=== PATIENT | female | born 1955 | race Caucasian/White ===

== ENCOUNTER 2019-07-08 10:30 | Emergency (ER) | payer MEDICARE ==
[2019-07-08] MEDS ORDERED: HYDROMORPHONE HCL INJ/PF 2 MG/ML AMPULE IM ONE (11:27)
--- NOTE | 2019-07-08 11:28 | ER Document Report ---
ED General - General Chief Complaint: Shoulder Pain Stated Complaint: BODY PAIN Time Seen by Provider: 07/08/19 11:20 Notes: Patient with chronic hep C and chronic pain presents with bilateral shoulder pain left greater than right. Worse with movement. She is tried multiple medications and is now on only Motrin. She is new to the area has Blue Cross Blue Shield yet has not established care with pain primary or hepatology. Denies radiculopathy symptoms denies fever and chills. She is asking to be admitted for her hep C. She denies jaundice. - Related Data Allergies/Adverse Reactions: acetaminophen Allergy (Verified 07/08/19 10:42) fentanyl Allergy (Verified 07/08/19 10:42) gabapentin Allergy (Verified 07/08/19 10:42) ketorolac [From Toradol] Allergy (Verified 07/08/19 10:42) NSAIDS (Non-Steroidal Anti-Inflamma Allergy (Verified 07/08/19 10:42) Sulfa (Sulfonamide Antibiotics) Allergy (Verified 07/08/19 10:42) Past Medical History - Social History Smoking Status: Current Every Day Smoker Chew tobacco use (# tins/day): No Smoking Education Provided: Yes - The patient ED visit today was directly related to their abuse of tobacco. Frequency of alcohol use: Rare Drug Abuse: Marijuana Family History: None Patient has homicidal ideation: No Review of Systems - Review of Systems Notes: REVIEW OF SYSTEMS GEN: Denies fever, chills, weight loss ENT: Denies sore throat, nasal discharge, ear pain EYES: Denies blurry vision, eye pain, discharge CV: Denies chest pain, palpitations, edema RESP: Denies cough, shortness of breath, wheezing GI: Denies abdominal pain, nausea, vomiting, diarrhea MSK: Neck pain as above SKIN: Denies rash, skin lesions LYMPH: Denies swollen glands/lymph nodes NEURO: Denies headache, focal weakness or numbness, dizziness PSYCH: Denies depression, suicidal or homicidal ideation PHYSICAL EXAMINATION General: No acute distress, well-nourished Head: Atraumatic, normocephalic ENT: Mouth normal, oropharynx moist, no exudates or tonsillar enlargement Eyes: Conjunctiva normal, pupils equal, lids normal Neck: No JVD, supple, no guarding CVS: Normal rate, regular rhythm, no murmurs Resp: No resp distress, equal and normal breath sounds bilaterally GI: Nondistended, soft, no tenderness to palpation, no rebound or guarding Ext: No deformities, no edema, normal range of motion in upper and lower ext Back: No CVA or midline TTP Skin: No rash, warm Lymphatic: No lymphadeopathy noted Neuro: Awake, alert. Face symmetric. GCS 15. Physical Exam - Vital signs Vitals: Temp 98.1 F 07/08/19 10:31 Course - Re-evaluation Re-evalutation: 07/08/19 11:50 Patient presents chronic musculoskeletal pain history of multiple surgeries history of arthritis in most major joints without acute redness acute arthritis on exam or complications of hep C apparent. Do not think she requires work-up today. We discussed in depth non-opioid pain options as an outpatient including cannabis topicals etc. She was referred via her excellent insurance to see any primary care doctor in the community. I have discussed with the patient there likely diagnosis, aftercare plan, follow-up plans and my usual and customary return precautions. They verbalized understanding of this. - Vital Signs Vital signs: Temp Pulse Resp BP Pulse Ox 98.1 F 07/08/19 10:31 Discharge - Discharge Clinical Impression: Chronic musculoskeletal pain Condition: Good Disposition: HOME, SELF-CARE Instructions: Chronic Pain Control ([facility]) Additional Instructions: As we discussed please feel free to consume CBD or cannabis edibles but do not smoke it because of your COPD. Given that you have Blue Cross she can see any provider in the area that you would like so please go online and select one. [place] [facility] can manage her chronic pain from there.
[2019-07-08 13:29] VITALS: BP 118/75
== END 2019-07-08 13:24 | disposition home or self-care (01) ==
LOC: ER 10:30
DX: G89.29 Other chronic pain (principal); M25.512 Pain in left shoulder; M25.511 Pain in right shoulder; F17.200 Nicotine dependence, unspecified, uncomplicated; Z88.6 Allergy status to analgesic agent; Z88.2 Allergy status to sulfonamides
CPT/HCPCS: 99283; 96372; J1170

== ENCOUNTER 2019-08-13 08:56 | Emergency (ER) | payer MEDICARE ==
--- NOTE | 2019-08-13 09:48 | ER Document Report ---
ED General - General Chief Complaint: Nausea/Vomiting/Diarrhea Stated Complaint: SHORTNESS OF BREATH Time Seen by Provider: 08/13/19 09:48 - HPI Patient complains to provider of: headache, N/V diarhea Notes: Three 09/15 throbbing migraine headache. Patient suffers from chronic migraines feels a clinical classic migraines. Denies trauma, fever, neck pain. Denies abrupt onset. This headache has been associated with nausea vomiting and diarrhea. Nothing makes the pain better or worse. Denies all other symptoms - Related Data Allergies/Adverse Reactions: acetaminophen Allergy (Verified 07/08/19 10:42) fentanyl Allergy (Verified 07/08/19 10:42) gabapentin Allergy (Verified 07/08/19 10:42) ketorolac [From Toradol] Allergy (Verified 07/08/19 10:42) NSAIDS (Non-Steroidal Anti-Inflamma Allergy (Verified 07/08/19 10:42) Sulfa (Sulfonamide Antibiotics) Allergy (Verified 07/08/19 10:42) Past Medical History - Social History Smoking Status: Current Every Day Smoker Chew tobacco use (# tins/day): No Frequency of alcohol use: Occasional Drug Abuse: Marijuana Family History: None Neurological Medical History: Reports: Hx Migraine, Hx Seizures Endocrine Medical History: Reports: Hx Diabetes Mellitus Type 2 Past Surgical History: Reports: Hx Cardiac Catheterization - x1 stent Review of Systems - Review of Systems Notes: REVIEW OF SYSTEMS: CONSTITUTIONAL: -fevers, -chills EENT: -eye pain, -difficulty swallowing, -nasal congestion CARDIOVASCULAR: -chest pain, -syncope. RESPIRATORY: -cough, -SOB GASTROINTESTINAL: Positive for nausea vomiting diarrhea GENITOURINARY: -dysuria, -hematuria MUSCULOSKELETAL: -back pain, -neck pain SKIN: -rash or skin lesions. HEMATOLOGIC: -easy bruising or bleeding. LYMPHATIC: -swollen, enlarged glands. NEUROLOGICAL: Positive for headache PSYCHIATRIC: -anxiety, -depression. ALL OTHER SYSTEMS REVIEWED AND NEGATIVE. Physical Exam - Vital signs Vitals: Temp 98.6 F 08/13/19 08:57 - Notes Notes: PHYSICAL EXAMINATION: GENERAL: Well-appearing, well-nourished and in no acute distress. HEAD: Atraumatic, normocephalic. EYES: Pupils equal round and reactive to light, extraocular movements intact, sclera anicteric, conjunctiva are normal. ENT: nares patent, oropharynx clear without exudates. Moist mucous membranes. NECK: Normal range of motion, supple without lymphadenopathy LUNGS: Breath sounds clear to auscultation bilaterally and equal. No wheezes rales or rhonchi. HEART: Regular rate and rhythm without murmurs ABDOMEN: Soft, nontender, normoactive bowel sounds. No guarding, no rebound. No masses appreciated. EXTREMITIES: Normal range of motion, no pitting or edema. No cyanosis. NEUROLOGICAL: Cranial nerves grossly intact. Normal speech, normal gait. Normal sensory and motor exams. PSYCH: Normal mood, normal affect. SKIN: Warm, Dry, normal turgor, no rashes or lesions noted. Course - Re-evaluation Re-evalutation: 08/13/19 09:57 Appearing female no acute distress presents with migraine with nausea and vomiting. Will check labs will initiate therapy. 08/13/19 10:58 Sense of lab work-up unremarkable. Patient feeling markedly improved. Will be discharged home follow-up PCP return if anything changes - Vital Signs Vital signs: Temp Pulse Resp BP Pulse Ox 98.6 F 95 08/13/19 08:57 08/13/19 09:41 - Laboratory Result Diagrams: 08/13/19 09:28 08/13/19 09:28 Laboratory results interpreted by nj: 08/13/19 08/13/19 08/13/19 09:28 09:28 09:28 Hgb 16.3 H Sodium 136.2 L Potassium 3.5 L Glucose 139 H AST 70 H ALT 56 H Urine Glucose (UA) 150 H Urine Blood SMALL H Ur Leukocyte Esterase SMALL H - EKG Interpretation by Mt EKG shows normal: Sinus rhythm Rate: Normal Additional EKG results interpreted by nj: 08/13/19 10:02 Normal sinus rhythm, no ST elevation or depression, normal PA interval, normal QRS Discharge - Discharge Clinical Impression: Headache Qualifiers: Headache type: unspecified Headache chronicity pattern: acute headache Intractability: not intractable Qualified Code(s): R51 - Headache Disposition: HOME, SELF-CARE Instructions: Acetaminophen
[2019-08-13 09:49] LABS: ABSOLUTE EOSINOPHILS # (AUTO) 0.1 10^3/uL (0.0-0.6); ABSOLUTE LYMPHOCYTES (AUTO) 1.6 10^3/uL (0.5-4.7); ABSOLUTE MONOCYTES (AUTO) 0.7 10^3/uL (0.1-1.4); ABSOLUTE NEUT (AUTO) 5.7 10^3/uL (1.7-8.2); BASOPHILS % (AUTO) 0.4 % (0-2); EOSINOPHILS % (AUTO) 1.8 % (0-6); HEMATOCRIT 46.2 % (36.0-47.0); HEMOGLOBIN 16.3 g/dL (12.0-15.5); MEAN CORPUSCULAR HEMOGLOBIN 31.9 pg (27.0-33.4); MEAN CORPUSCULAR HGB CONC 35.4 g/dL (32.0-36.0); MEAN CORPUSCULAR VOLUME 90 fl (80-97); PLATELET COUNT 237 10^3/uL (150-450); RED BLOOD COUNT 5.12 10^6/uL (3.72-5.28); RED CELL DISTRIBUTION WIDTH 12.3 % (11.5-14.0); SEGMENTED NEUTROPHILS % (AUTO) 68.8 % (42-78); TOTAL CELLS COUNTED % (AUTO) 100 %; WHITE BLOOD COUNT 8.2 10^3/uL (4.0-10.5)
[2019-08-13] MEDS ORDERED: DIPHENHYDRAMINE HCL 50 MG/ML VIAL IV ONE (09:54)
[2019-08-13] MEDS ORDERED: METOCLOPRAMIDE HCL INJ/PF 10 MG/2 ML SDV IV ONE (09:54)
[2019-08-13] MEDS ORDERED: NORMAL SALINE 1000 ML 1,000 ML IV ONE (09:54)
[2019-08-13] MEDS ORDERED: KETOROLAC TROMETHAMINE INJ/PF 30 MG/1 ML SDV IV ONE (09:55)
[2019-08-13 10:07] LABS: ALKALINE PHOSPHATASE 105 U/L (38-126); ANION GAP 8 (5-19); ASPARTATE AMINO TRANSFERASE 70 U/L (14-36); BILIRUBIN,TOTAL 0.7 mg/dL (0.2-1.3); BLOOD UREA NITROGEN 14 mg/dL (7-20); CALCIUM 9.2 mg/dL (8.4-10.2); CARBON DIOXIDE 25 mmol/L (22-30); CHLORIDE 103 mmol/L (98-107); CREATINE KINASE 45 U/L (30-135); GLUCOSE 139 mg/dL (75-110); POTASSIUM 3.5 mmol/L (3.6-5.0)
[2019-08-13 10:10] LABS: APPEARANCE,URINE SLIGHTLY-CLOUDY; BILIRUBIN,URINE NEGATIVE (NEGATIVE); COLOR,URINE YELLOW; GLUCOSE, URINE 150 mg/dL (NEGATIVE); KETONES,URINE NEGATIVE (NEGATIVE); LEUKOCYTE ESTERASE,URINE SMALL (NEGATIVE); NITRITE,URINE NEGATIVE (NEGATIVE); PROTEIN,URINE NEGATIVE (NEGATIVE); UROBILINOGEN,URINE NEGATIVE mg/dL (<2.0)
--- NOTE | 2019-08-13 10:20 | RADIOLOGY REPORT (SQ) ---
EXAM DESCRIPTION: CHEST SINGLE VIEW IMAGES COMPLETED DATE/TIME: 08/13/2019 9:35 am REASON FOR STUDY: bed 6 difficulty breathing COMPARISON: None. EXAM PARAMETERS: NUMBER OF VIEWS: One view. TECHNIQUE: Single frontal radiographic view of the chest acquired. RADIATION DOSE: NA LIMITATIONS: None. FINDINGS: LUNGS AND PLEURA: No opacities, masses or pneumothorax. No pleural effusion. MEDIASTINUM AND HILAR STRUCTURES: No masses. Contour normal. HEART AND VASCULAR STRUCTURES: Heart normal in size. Normal vasculature. BONES: No acute findings. HARDWARE: Lower cervical fusion hardware. Resection distal 3rd right clavicle OTHER: No other significant finding. IMPRESSION: NO ACUTE RADIOGRAPHIC FINDING IN THE CHEST. TECHNICAL DOCUMENTATION: JOB ID: [id number] 2010 [employer]- All Rights Reserved Reading location - IP/workstation name: [email or web address]
[2019-08-13 10:32] LABS: CREATINE KINASE MB < 0.22 ng/mL (<4.55); TROPONIN I < 0.012 ng/mL
[2019-08-13] MEDS ORDERED: ALBUMIN HUMAN 12.5 GM/50 ML RTUINJ IV ONE (10:37)
[2019-08-13 11:45] VITALS: BP 124/73
--- NOTE | 2019-08-13 12:01 | EKG REPORT ---
SEVERITY:- ABNORMAL ECG - SINUS RHYTHM BORDERLINE T ABNORMALITIES, ANTERIOR LEADS : Confirmed by: Chalo Briceno MD 13-Aug-2019 12:00:47
== END 2019-08-13 11:45 | disposition home or self-care (01) ==
LOC: ER 08:56
DX: G43.909 Migraine, unspecified, not intractable, without status migrainosus (principal); R11.2 Nausea with vomiting, unspecified; R19.7 Diarrhea, unspecified; F17.200 Nicotine dependence, unspecified, uncomplicated; F12.10 Cannabis abuse, uncomplicated; E11.9 Type 2 diabetes mellitus without complications; Z88.8 Allergy status to other drugs, medicaments and biological substances; Z88.6 Allergy status to analgesic agent; Z88.5 Allergy status to narcotic agent; Z88.2 Allergy status to sulfonamides
CPT/HCPCS: 93005; 99284; 96361; 96374; 96375; 36415; 82553; 82550; 85025; 80053; 81001; 84484; 71045; 93010; J1200; J1885; J2765; J7030

== ENCOUNTER 2019-12-06 11:43 | Emergency (ER) | payer MEDICARE ==
--- NOTE | 2019-12-06 12:39 | RADIOLOGY REPORT (SQ) ---
EXAM DESCRIPTION: CHEST SINGLE VIEW IMAGES COMPLETED DATE/TIME: 12/06/2019 12:31 pm REASON FOR STUDY: cp COMPARISON: 08/13/2019 EXAM PARAMETERS: NUMBER OF VIEWS: One view. TECHNIQUE: Single frontal radiographic view of the chest acquired. RADIATION DOSE: NA LIMITATIONS: None. FINDINGS: LUNGS AND PLEURA: No opacities, masses or pneumothorax. No pleural effusion. MEDIASTINUM AND HILAR STRUCTURES: No masses. Contour normal. HEART AND VASCULAR STRUCTURES: Heart normal in size. Normal vasculature. BONES: No acute findings. HARDWARE: None in the chest. OTHER: No other significant finding. IMPRESSION: NO ACUTE RADIOGRAPHIC FINDING IN THE CHEST. TECHNICAL DOCUMENTATION: JOB ID: [id number] 2010 [employer]- All Rights Reserved Reading location - IP/workstation name: [email or web address]
--- NOTE | 2019-12-06 12:41 | EKG REPORT ---
SEVERITY:- BORDERLINE ECG - SINUS RHYTHM BORDERLINE LEFT AXIS DEVIATION NONSPECIFIC ST-T CHANGES- INFERIOR LEADS : Confirmed by: Chalo Briceno MD 06-Dec-2019 12:40:40
[2019-12-06 12:56] LABS: ABSOLUTE BASOPHILS # (AUTO) 0.1 10^3/uL (0.0-0.2); ABSOLUTE EOSINOPHILS # (AUTO) 0.3 10^3/uL (0.0-0.6); ABSOLUTE LYMPHOCYTES (AUTO) 1.9 10^3/uL (0.5-4.7); ABSOLUTE MONOCYTES (AUTO) 0.4 10^3/uL (0.1-1.4); ABSOLUTE NEUT (AUTO) 4.5 10^3/uL (1.7-8.2); BASOPHILS % (AUTO) 0.9 % (0-2); HEMATOCRIT 47.8 % (36.0-47.0); HEMOGLOBIN 16.8 g/dL (12.0-15.5); LYMPHOCYTES % (AUTO) 26.4 % (13-45); MEAN CORPUSCULAR HEMOGLOBIN 32.1 pg (27.0-33.4); MEAN CORPUSCULAR HGB CONC 35.2 g/dL (32.0-36.0); MEAN CORPUSCULAR VOLUME 91 fl (80-97); MONOCYTES % (AUTO) 5.2 % (3-13); PLATELET COUNT 240 10^3/uL (150-450); RED BLOOD COUNT 5.26 10^6/uL (3.72-5.28); RED CELL DISTRIBUTION WIDTH 12.4 % (11.5-14.0); SEGMENTED NEUTROPHILS % (AUTO) 63.5 % (42-78); TOTAL CELLS COUNTED % (AUTO) 100 %; WHITE BLOOD COUNT 7.1 10^3/uL (4.0-10.5)
[2019-12-06 13:17] LABS: ALBUMIN 4.4 g/dL (3.5-5.0); ALKALINE PHOSPHATASE 107 U/L (38-126); ANION GAP 11 (5-19); ASPARTATE AMINO TRANSFERASE 72 U/L (14-36); BILIRUBIN,DIRECT 0.4 mg/dL (0.0-0.4); BILIRUBIN,TOTAL 1.1 mg/dL (0.2-1.3); BLOOD UREA NITROGEN 16 mg/dL (7-20); CARBON DIOXIDE 25 mmol/L (22-30); CHLORIDE 104 mmol/L (98-107); CREATINE KINASE 55 U/L (30-135); GLUCOSE 158 mg/dL (75-110); TOTAL PROTEIN 7.1 g/dL (6.3-8.2)
[2019-12-06] MEDS ORDERED: OXYCODONE-ACETAMINOPHEN 5-325 MG TABLET PO ONE (13:17)
--- NOTE | 2019-12-06 13:17 | ER Document Report ---
ED General - General Chief Complaint: Chest Pain Stated Complaint: CHEST PAIN Time Seen by Provider: 12/06/19 12:10 - HPI Notes: Chief complaint: Chest pain History of present illness: 64-year-old female with past history of CAD with previous stent placement while she was living in [place] about 4 years ago resents for evaluation of chest pain. This lady has had previous surgery for cervical disc disease and has a lot of chronic pain issues relevant to chronic back and thoracic pain. She says her pain seems to be getting worse and some of her discomfort is in her central chest at times radiating to both shoulders. She denies dyspnea, hemoptysis, fever, chills or sputum production. She is a 1 pack/day smoker and continues to smoke. She is not taking any aspirin or any type of blood thinners. Patient says she takes medication for blood pressure. She denies any known history of hyperlipidemia. She says she is a "borderline diabetic". She says she is an orphan and does not know her family history. She denies any history of thromboembolic disease. She reports multiple allergies to medications and at this time is asking for Vicodin by name for her pain. HEART Score: HISTORY 1 ECG 0 AGE 2 RISK FACTORS 1 TROPONIN 0 TOTAL: 3 If HEART score is = 3 AND both tronponin measurments are normal, the 30 day risk of a major adverse cardiac event (all-cause mortality, myocardia infarction or need for coronary revscularization) is < 1% (Sensitivity 100%, NPV 100%) - Related Data Allergies/Adverse Reactions: acetaminophen Allergy (Verified 07/08/19 10:42) fentanyl Allergy (Verified 07/08/19 10:42) gabapentin Allergy (Verified 07/08/19 10:42) ketorolac [From Toradol] Allergy (Verified 07/08/19 10:42) NSAIDS (Non-Steroidal Anti-Inflamma Allergy (Verified 07/08/19 10:42) Sulfa (Sulfonamide Antibiotics) Allergy (Verified 07/08/19 10:42) Past Medical History - General Information source: Patient - Social History Smoking Status: Current Every Day Smoker Frequency of alcohol use: Occasional Drug Abuse: Marijuana Family History: None Patient has homicidal ideation: No - Past Medical History Cardiac Medical History: Reports: Hx Coronary Artery Disease Pulmonary Medical History: Reports: Hx COPD Neurological Medical History: Reports: Hx Migraine, Hx Seizures Endocrine Medical History: Reports: Hx Diabetes Mellitus Type 2 Past Surgical History: Reports: Hx Cardiac Catheterization - x1 stent Review of Systems - Review of Systems Notes: Constitutional: Negative for fever. HENT: Negative for sore throat. Eyes: Negative for visual changes. Cardiovascular: As per HPI. Respiratory: Negative for shortness of breath. Gastrointestinal: Negative for abdominal pain, vomiting or diarrhea. Genitourinary: Negative for dysuria. Musculoskeletal: As per HPI. Skin: Negative for rash. Neurological: Negative for headaches, weakness or numbness. 10 point ROS negative except as marked above and in HPI. Physical Exam - Vital signs Vitals: Temp 97.8 F 12/06/19 11:43 - Notes Notes: GENERAL: Female patient of approximately stated age appearing in no acute distress. SKIN: Good turgor no rashes. HEAD: Normocephalic atraumatic. EYES: PERRLA. EOMI. Conjunctivae and sclerae clear. EARS: CANALS AND TMS CLEAR. NOSE: CLEAR. MOUTH: Moist mucosa. Good dentition. No stridor or edema. No drooling. NECK: Supple. No masses or thyromegaly. No adenopathy. Carotids 2+ without bruits. No JVD. BACK: Mild dorsal kyphosis. Diffuse tenderness tenderness. CHEST: Diffuse tenderness of chest wall which seems to reproduce her pain. Respirations unlabored. Breath sounds clear and symmetrical. HEART: Regular rhythm. No murmur gallop or rub. ABDOMEN: Soft nontender without masses, organomegaly or rebound. Bowel sounds normally active. No bruits. GENITALIA: Deferred. EXTREMITIES: No edema. No calf tenderness. Cap refill less than 1.5 seconds. Dorsalis pedis and posterior tibial pulses 3+ and symmetrical. NEUROLOGICAL: GCS 15. Alert and oriented x3. Normal gait. Fluent speech. Cranial nerves II through XII intact. Sensorimotor and cerebellar normal. Nor mal tone. PSYCHIATRIC: Appropriate affect. Course - Re-evaluation Re-evalutation: 12/06/19 18:35 Patient has had 2 troponins morning 3 hours apart which are normal. Her resting EKG initially also was normal. Her pain clinically appears to be likely of musculoskeletal origin and is readily reproducible with palpation. She is still smoking a pack of cigarettes per day. I told her she needed to stop this. Also advised she take 81 mg of aspirin daily. I will refer her to cardiology on an outpatient basis for follow-up with Dr. Abreu the on-call cigarette packing machine operator. I have also given her some tramadol for symptomatic treatment of her pain until she can be further evaluated as an outpatient. Findings, clinical impression and plan of treatment have been discussed with patient/family. Understanding of current findings and recommendations has been acknowledged by them and there is agreement regarding disposition and follow-up. - Vital Signs Vital signs: Temp Pulse Resp BP Pulse Ox 97.8 F 18 140/89 H 99 12/06/19 15:01 12/06/19 15:01 12/06/19 15:01 12/06/19 15:01 - Laboratory Result Diagrams: 12/06/19 12:15 12/06/19 12:15 Laboratory results interpreted by me: 12/06/19 12/06/19 12/06/19 12:15 12:15 16:22 Hgb 16.8 H Hct 47.8 H Glucose 158 H AST 72 H ALT 49 H Urine Protein 30 H Urine Ketones 20 H Urine Urobilinogen 4.0 H Leukocyte Esterase Rfl MODERATE H - Diagnostic Test Radiology reviewed: Reports reviewed - Normal portable chest x-ray per radiologist. - EKG Interpretation by Me Additional EKG results interpreted by me: 12/06/19 13:16 Twelve-lead EKG reviewed by me contemporaneously: 1151 hrs. Indication for study: Chest pain Rhythm: Normal sinus Rate: 88 Intervals: Normal QRS axis: -[address]/T wave changes: None Comparison with prior tracing: Slight leftward shift of QRS axis compared with prior study of 08/13/2019 Interpretation: Borderline left axis deviation Discharge - Discharge Clinical Impression: Chronic pain syndrome, Cigarette smoker Chest pain Qualifiers: Chest pain type: unspecified Qualified Code(s): R07.9 - Chest pain, unspecified Condition: Stable Disposition: HOME, SELF-CARE Instructions: Chest Pain of Unclear Cause ([facility]) Additional Instructions: Take an 81 mg aspirin tablet every day. Stop smoking. Take prescribed medication as needed for pain. Follow-up with referral cigarette packing machine operator in the next 1 week. Return here as needed for new or worsening symptoms: Pain that is worsening or unimproved Uncontrolled vomiting High fever or shaking chills Overall worsening Prescriptions: Tramadol HCl [Ultram 50 mg Tablet] 50 mg PO Q4HP PRN #12 tab PRN Reason: Forms: Smoking Cessation Education Referrals: BRANDY ABREU MD [ACTIVE STAFF] - Follow up as needed
[2019-12-06 13:18] LABS: POTASSIUM 4.4 mmol/L (3.6-5.0)
[2019-12-06 13:28] LABS: CREATINE KINASE MB < 0.22 ng/mL (<4.55); TROPONIN I < 0.012 ng/mL
[2019-12-06 15:50] VITALS: BP 140/89
[2019-12-06 17:35] LABS: APPEARANCE,URINE TURBID; BILIRUBIN,URINE NEGATIVE (NEGATIVE); GLUCOSE, URINE NEGATIVE (NEGATIVE); KETONES,URINE 20 mg/dL (NEGATIVE); PROTEIN,URINE 30 mg/dL (NEGATIVE); URINE SPECIFIC GRAVITY 1.028
[2019-12-06 17:36] LABS: COLOR,URINE YELLOW
[2019-12-06 17:51] LABS: URINE AMPHETAMINES SCREEN NEGATIVE; URINE BARBITURATES SCREEN NEGATIVE; URINE BENZODIAZEPINES SCREEN NEGATIVE; URINE COCAINE SCREEN NEGATIVE; URINE MARIJUANA (THC) SCREEN UNCONFIRMED POSITIVE; URINE METHADONE SCREEN NEGATIVE; URINE PHENCYCLIDINE SCREEN NEGATIVE
== END 2019-12-06 19:04 | disposition home or self-care (01) ==
LOC: ER 11:43
DX: G89.4 Chronic pain syndrome (principal); R07.9 Chest pain, unspecified; F17.210 Nicotine dependence, cigarettes, uncomplicated
CPT/HCPCS: 93005; 99285; 36415; 82553; 82550; 85025; 80053; 81001; 84484; 80307; 71045; 93010; A9270